=== PATIENT | female | born 1950 | race Caucasian/White ===

== ENCOUNTER 2016-10-08 16:45 | Outpatient (CLI) | payer MEDICARE, OTHER | END 2016-10-08 16:46 | disposition home or self-care (01) | DX: N39.0 Urinary tract infection, site not specified (principal) ==

== ENCOUNTER 2016-12-02 11:36 | Outpatient (CLI) | payer MEDICARE, OTHER | END 2016-12-02 11:37 | disposition home or self-care (01) | DX: E03.9 Hypothyroidism, unspecified (principal) ==

== ENCOUNTER 2017-01-10 08:35 | Outpatient (CLI) | payer MEDICARE, OTHER | END 2017-01-10 08:36 | disposition home or self-care (01) | LOC: LAB.R 08:35 | PROVIDERS: ATTEND Family Medicine | DX: N39.0 Urinary tract infection, site not specified (principal) | CPT/HCPCS: 87086 ==

== ENCOUNTER 2017-01-11 13:02 | Outpatient (CLI) | payer MEDICARE, OTHER | END 2017-01-11 13:03 | disposition home or self-care (01) | DX: R92.1 Mammographic calcification found on diagnostic imaging of breast (principal) ==

== ENCOUNTER 2017-01-14 08:18 | Emergency (ER) | payer MEDICARE, OTHER ==
[2017-01-14 08:47] LABS: BILIRUBIN,URINE NEGATIVE (NEGATIVE)
[2017-01-14 08:48] LABS: UA CHARGE (STRIP ONLY) YES; UR CULTURE IF IND NOT INDICATED
--- NOTE | 2017-01-14 08:58 | ED Physician Documentation ---
PD HPI FEMALE - Stated complaint Stated Complaint: UNABLE TO URINATE - Chief complaint Chief Complaint: Abd Pain - History obtained from History obtained from: Patient - History of Present Illness Timing - onset: How many days ago (few) Timing - duration: Days Timing - details: Gradual onset, Waxing and waning Associated symptoms: Abdominal pain (crampy suprapubic area), Dysuria, Urinary frequency. No: Fever, Vaginal pain, Vaginal bleeding, Vaginal discharge Contributing factors: No: Exposed to STD Similar symptoms before: Diagnosis (UTI) Recently seen: Clinic (had had UTI recently and Rx with abx. Having recurrent symptoms but normal UA in office. Was being referred to Urology but not getting appt for couple of weeks. Still with the dysuria, and feeling of urgency and cramping pains, but only small amount of urine out.) Review of Systems Constitutional: denies: Fever, Chills Throat: denies: Sore throat Respiratory: denies: Cough GI: reports: Nausea. denies: Vomiting, Diarrhea : reports: Dysuria, Frequency. denies: Discharge Skin: denies: Rash PD PAST MEDICAL HISTORY - Past Medical History Past Medical History: Yes Cardiovascular: Hypertension - Past Surgical History Past Surgical History: Yes - Present Medications Home Medications: Ambulatory Orders Medication Instructions Recorded Confirmed Carvedilol [Coreg] 12.5 mg PO BID 09/12/14 01/14/17 Hydralazine HCl 50 mg BID 09/12/14 01/14/17 Levothyroxine [Synthroid] 125 mcg PO QDAC 09/12/14 01/14/17 Aspirin 81 mg PO DAILY 01/14/17 01/14/17 Carta Xt 01/14/17 Naproxen 375 mg PO BID #20 tablet 01/14/17 Oxybutynin [Ditropan] 5 mg PO BID #10 tablet 01/14/17 Phenazopyridine [Pyridium] 200 mg PO TID PRN #15 tablet 01/14/17 - Allergies Allergies/Adverse Reactions: Allergies Allergy/AdvReac Type Severity Reaction Status Date / Time No Known Drug Allergies Allergy Verified 09/12/14 08:46 - Social History Does the pt smoke?: No Smoking Status: Never smoker Does the pt drink ETOH?: Yes Does the pt have substance abuse?: No PD ED PE NORMAL - Vitals Vital signs reviewed: Yes - General General: Alert and oriented X 3, Well developed/nourished - HEENT HEENT: Pharynx benign - Neck Neck: Supple, no meningeal sign, No adenopathy - Cardiac Cardiac: RRR, No murmur - Respiratory Respiratory: Clear bilaterally - Abdomen Abdomen: Normal bowel sounds, Soft, Non tender, Non distended - Female Female : [employer] Att[employer] present, Other (external normal. vault without discharge nor inflammation. Swabs obtained. ) - Rectal Rectal: Deferred - Back Back: No CVA TTP - Derm Derm: Normal color, Warm and dry, No rash - Neuro Neuro: Alert and oriented X 3, No motor deficit, Normal speech Results - Vitals Vitals: Oxygen O2 Source Room air - Labs Labs: Microbiology 01/14/17 11:30 Wet Prep - Final Vaginal Laboratory Tests 01/14/17 01/14/17 08:37 11:30 Urine Color YELLOW Urine Clarity CLEAR Urine pH 5.0 Ur Specific [place] 1.015 Urine Protein NEGATIVE Urine Glucose (UA) NEGATIVE Urine Ketones NEGATIVE Urine Occult Blood NEGATIVE Urine Nitrite NEGATIVE Urine Bilirubin NEGATIVE Urine Urobilinogen 0.2 (NORMAL) Ur Leukocyte Esterase NEGATIVE Ur Microscopic Review NOT INDICATED Urine Culture Comments NOT INDICATED C.trachomatis RNA (TMA) NOT DETECTED Chlamydia/GC Comment SEE NOTE N.gonorrhoeae RNA (TMA) NOT DETECTED PD MEDICAL DECISION MAKING - ED course Complexity details: considered differential (recent UTI and having symptoms again, but clear urine and no vaginitis, and no urinary retention by bladder scanner, so presume some interstitial cystitis. ), d/w patient Departure - Departure Disposition: 01 Home, Self Care Clinical Impression: Dysuria, Cystitis Condition: Stable Record reviewed to determine appropriate education?: Yes Instructions: ED Dysuria Uncertain Cause, Cystitis Interstitial Follow-Up: Nelson Suarez MD [Primary Care Provider] - Prescriptions: Oxybutynin [Ditropan] 5 mg PO BID #10 tablet Naproxen 375 mg PO BID #20 tablet Phenazopyridine [Pyridium] 200 mg PO TID PRN #15 tablet PRN Reason: Pain Comments: Without an infection, an alternative is just some inflammation of the bladder outlet. Naproxen twice daily for a week. Phenazopyridine 3 times daily for 5 days or so. Ditropan twice daily for likely bladder spasms. Recheck with PMD next week, call for appt. Discharge Date/Time: 01/14/17 11:55
--- NOTE | 2017-01-14 11:04 | CT Preliminary Report ---
Exam: CT KUB IMPRESSION: No urinary tract stones or obstruction. No evidence of acute abdominal or pelvic process. [facility] SITE ID: [id number]
--- NOTE | 2017-01-14 11:07 | CT Report ---
EXAM: CT ABDOMEN AND PELVIS (CT KUB) EXAM DATE: 01/14/2017 10:52 AM. CLINICAL HISTORY: Dysuria and frequency/pain. COMPARISONS: None. TECHNIQUE: Routine axial helical CT imaging was performed through the abdomen and pelvis without IV c ontrast. Reconstructions: Coronal and sagittal. In accordance with CT protocol optimization, one or more of the following dose reduction techniques w ere utilized for this exam: automated exposure control, adjustment of mA and/or KV based on patient s ize, or use of iterative reconstructive technique. FINDINGS: Lung Bases: Unremarkable. Right Kidney/Ureter: No stones, hydronephrosis, or hydroureter. No perinephric fat stranding. Left Kidney/Ureter: No stones, hydronephrosis, or hydroureter. No perinephric fat stranding. Other Solid Organs: Small cysts are seen in the inferior aspect of the right hepatic lobe measuring u p to 1.4 cm. Other solid organs are unremarkable in this noncontrast study. Gallbladder/Bile Ducts: Unremarkable. Peritoneal Cavity: No free fluid, free air or juancarlos adenopathy. Bowel is grossly unremarkable. Pelvic Organs: No bladder stones or wall thickening. Noncontrast images of the visualized pelvic orga ns are unremarkable. Vasculature: Unremarkable. Other: None. IMPRESSION: No urinary tract stones or obstruction. No evidence of acute abdominal or pelvic process. [facility] Referring Provider Line: [phone] SITE ID: [id number]
[2017-01-14 11:51] VITALS: BP 166/67
== END 2017-01-14 11:55 | disposition home or self-care (01) ==
LOC: ED 08:18
DX: N30.00 Acute cystitis without hematuria (principal); I10 Essential (primary) hypertension
CPT/HCPCS: 51798; 74176; 81001; 81003; 87086; 87210; 87491; 87591; 99283; 99284

== ENCOUNTER 2017-04-22 11:30 | Outpatient (CLI) | payer MEDICARE, OTHER ==
[2017-04-22 18:34] LABS: BASOPHILS % (AUTO) 0.4 %; EOSINOPHILS # (AUTO) 0.1 10^3/uL (0.0-0.7); EOSINOPHILS % (AUTO) 0.9 %; HCT - HEMATOCRIT 37.4 % (37.0-47.0); HGB - HEMOGLOBIN 12.5 g/dL (12.0-16.0); LYMPHOCYTES # (AUTO) 1.6 10^3/uL (1.5-3.5); MEAN CORPUSCULAR HEMOGLOBIN 35.8 pg (27.0-31.0); MEAN CORPUSCULAR HGB CONC 33.3 g/dL (32.0-36.0); MEAN CORPUSCULAR VOLUME 107.5 fL (81.0-99.0); MEAN PLATELET VOLUME 7.4 fL (7.9-10.8); MONOCYTES # (AUTO) 0.6 10^3/uL (0.0-1.0); MONOCYTES % (AUTO) 7.4 %; NEUTROPHILS # (AUTO) 5.6 10^3/uL (1.5-6.6); NEUTROPHILS % (AUTO) 71.3 %; RED BLOOD COUNT 3.48 10^6/uL (4.20-5.40); RED CELL DISTRIBUTION WIDTH 12.8 % (12.0-15.0); UNCORRECTED WHITE BLOOD COUNT 7.8 x10^3/uL; WHITE BLOOD COUNT 7.8 x10^3/uL (4.8-10.8)
[2017-04-22 18:55] LABS: ALBUMIN/GLOBULIN RATIO 1.6 (1.0-2.2); BILIRUBIN,TOTAL 0.7 mg/dL (0.2-1.0); BUN - BLOOD UREA NITROGEN 24 mg/dL (6-20); CALCIUM 9.7 mg/dL (8.5-10.3); CARBON DIOXIDE - CO2 22 mmol/L (21-32); CHLORIDE 102 mmol/L (101-111); CHOL/HDL RATIO 2.2 (<4.4); CHOLESTEROL 233 mg/dL; CREATININE 0.9 mg/dL (0.4-1.0); GFR - MDRD 63 (>89); GLUCOSE 82 mg/dL (70-100); HDL CHOLESTEROL 107 mg/dL; POTASSIUM 5.2 mmol/L (3.5-5.0); SODIUM 134 mmol/L (135-145); TOTAL PROTEIN 7.4 g/dL (6.7-8.2); TRIGLYCERIDES 85 mg/dL; VLDL CHOLESTEROL 17 mg/dL
[2017-04-22 19:26] LABS: THYROID STIMULATING HORMONE < 0.08 uIU/mL (0.34-5.60)
== END 2017-04-22 11:31 | disposition home or self-care (01) ==
LOC: LAB.WCP 11:30
PROVIDERS: ATTEND Physician Assistant Medical
DX: E78.5 Hyperlipidemia, unspecified (principal); E03.9 Hypothyroidism, unspecified; I10 Essential (primary) hypertension
CPT/HCPCS: 36415; 80053; 80061; 84439; 84443; 85025